=== PATIENT | male | born 1995 | race Caucasian/White ===

== ENCOUNTER 2021-06-05 07:24 | Emergency (ER) | payer OTHER ==
[~2021-06-05] VITALS: Ht 190.5 cm; Wt 122.5 kg
[2021-06-05] MEDS ORDERED: NAPROXEN250 MG PO (08:20)
[2021-06-05] MEDS ORDERED: MORPHINE SULFAT15 MG PO (09:42)
== END 2021-06-05 09:43 | disposition home or self-care (01) ==
LOC: ER 07:30
DX: S82.891A Other fracture of right lower leg, initial encounter for closed fracture (principal); M25.571 Pain in right ankle and joints of right foot; W01.0XXA Fall on same level from slipping, tripping and stumbling without subsequent striking against object, initial encounter; Y93.01 Activity, walking, marching and hiking; Y99.0 Civilian activity done for income or pay; I10 Essential (primary) hypertension
CPT/HCPCS: 99283